=== PATIENT | male | born 1945 | race Caucasian/White ===

== ENCOUNTER 2024-01-06 20:26 | Emergency (ER) | payer MEDICARE ==
[2024-01-06] MEDS ORDERED: predniSONE 20 MG TAB ONE (20:53)
== END 2024-01-06 20:59 | disposition home or self-care (01) ==
LOC: BURERS 20:26
DX: T78.40XA Allergy, unspecified, initial encounter (principal); E11.9 Type 2 diabetes mellitus without complications; E78.00 Pure hypercholesterolemia, unspecified; I10 Essential (primary) hypertension; Z79.84 Long term (current) use of oral hypoglycemic drugs; Z79.899 Other long term (current) drug therapy
CPT/HCPCS: 99283; J7512

== ENCOUNTER 2024-03-10 11:49 | Emergency (ER) | payer MEDICARE | END 2024-03-10 13:09 | disposition home or self-care (01) | LOC: BURERS 11:49 | DX: J06.9 Acute upper respiratory infection, unspecified (principal); I10 Essential (primary) hypertension; E11.9 Type 2 diabetes mellitus without complications; G30.9 Alzheimer's disease, unspecified; F02.80 Dementia in other diseases classified elsewhere, unspecified severity, without behavioral disturbance, psychotic disturbance, mood disturbance, and anxiety | CPT/HCPCS: 71046 ==